=== PATIENT | male | born 1975 | race Caucasian/White ===

== ENCOUNTER 2024-09-21 16:47 | Outpatient (CLI) | payer OTHER, SELFPAY ==
--- NOTE | 2024-09-21 16:55 | XRR_ITS ---
PROCEDURE INFORMATION: Exam: XR Left Elbow Exam date and time: 09/21/2024 5:00 PM Age: 49 years old Clinical indication: Pain; Elbow; Left; Additional info: Pain in left elbow, olecranon bursitis TECHNIQUE: Imaging protocol: Radiologic exam of the left elbow. Views: 3 or more views. COMPARISON: No relevant prior studies available. FINDINGS: Bones/joints: No acute fracture or dislocation. Soft tissues: Normal, including along the extensor surface of the elbow. XR/XR elbow LT min 3V* [id number] IMPRESSION: No acute osseous findings.
== END 2024-09-21 16:48 | disposition home or self-care (01) ==
PROVIDERS: PCP Nurse Practitioner Family; Visit Provider Nurse Practitioner Family
DX: M70.22 Olecranon bursitis, left elbow (principal)
CPT/HCPCS: 73080

== ENCOUNTER → 2024-10-10 09:25 | Outpatient (BNVA) | payer OTHER, SELFPAY | PROVIDERS: PCP Nurse Practitioner Family; Referring Provider Nurse Practitioner Family; Visit Provider Specialist | DX: M77.12 Lateral epicondylitis, left elbow (principal) | CPT/HCPCS: 73080 ==

== ENCOUNTER 2024-10-18 15:40 | Outpatient (RCR) | payer OTHER, SELFPAY | END 2024-10-28 23:59 | disposition home or self-care (01) | LOC: SOT 15:40 | PROVIDERS: PCP Nurse Practitioner Family; Visit Provider Specialist | DX: M77.12 Lateral epicondylitis, left elbow (principal) | CPT/HCPCS: 97035; 97110; 97140; 97166; 97530; G0283 ==

== ENCOUNTER 2024-10-29 06:30 | Outpatient (RCR) | payer OTHER, SELFPAY | END 2024-11-27 23:59 | disposition home or self-care (01) | LOC: SOT 06:30 | PROVIDERS: PCP Nurse Practitioner Family; Visit Provider Specialist | DX: M77.12 Lateral epicondylitis, left elbow (principal) | CPT/HCPCS: 97035; 97110; 97530 ==